=== PATIENT | female | born 1950 | race Caucasian/White ===

== ENCOUNTER → 2019-05-21 13:23 | Outpatient (BNVA) | payer MEDICARE, MEDICAID, SELFPAY | PROVIDERS: PCP Nurse Practitioner Family; Referring Provider Nurse Practitioner Family; Visit Provider Specialist | DX: R26.81 Unsteadiness on feet (principal); Z86.73 Personal history of transient ischemic attack (TIA), and cerebral infarction without residual deficits; R00.2 Palpitations; G47.10 Hypersomnia, unspecified; R29.90 Unspecified symptoms and signs involving the nervous system; I10 Essential (primary) hypertension | CPT/HCPCS: 99205 ==

== ENCOUNTER 2019-07-03 15:50 | Outpatient (CLI) | payer MEDICARE, MEDICAID, SELFPAY ==
--- NOTE | 2019-07-03 16:30 | USCV_ITS ---
Cass Jauregui Age: 68 Gender: F : 1950 Exam Date: 07/03/2019 16:02 Ordering Phys: Abi Park MD Technologist: Diane Can Exam Location: [facility] [place] Indication: cva Risk Factors: Unknown Previous Vascular Surgery: None Right Brachial BP: / Left Brachial BP: / Right Left Velocity (cm/s) Spectral Plaque Velocity (cm/s) Spectral Plaque Syst/Diast Broadening Syst/Diast Broadening 74.60/ 13.70 Prox CCA 70.20 / 19.40 61.80/ 12.90 Mid CCA 79.20 / 15.30 45.20/ 11.30 Distal CCA 72.90 / 17.40 59.70/ 19.40 Hetro Prox ICA 54.70 / 11.70 Hetro 63.20/ 20.10 Mid ICA 67.40 / 22.30 77.80/ 25.70 Distal ICA 79.40 / 23.00 74.00 ECA 61.60 1.04 ICA/CCA 1.00 Vertebral Antegrade 50.70/ 16.70 cm/s 40.00/ 15.40 cm/s Tri Subclavian Tri 66.45 111.4 0 FINDINGS Comparison: none available. No significant elevation of systolic or diastolic velocities. Waveforms are normal. Mild atherosclerosis at the bifurcations. CONCLUSIONS Bilateral ICA stenosis less than 50%. Dr. Malou Joyner DO (Electronically Signed) Final Date: 04 July 2019 08:50 S
== END 2019-07-03 15:51 | disposition home or self-care (01) ==
LOC: US 15:52
PROVIDERS: Family Provider Nurse Practitioner Family; Visit Provider Specialist
DX: I63.9 Cerebral infarction, unspecified (principal); I65.23 Occlusion and stenosis of bilateral carotid arteries
CPT/HCPCS: 93880

== ENCOUNTER → 2019-08-12 14:52 | Outpatient (BNVA) | payer MEDICARE, MEDICAID, SELFPAY | PROVIDERS: Family Provider Nurse Practitioner Family; PCP Nurse Practitioner Family; Visit Provider Specialist | DX: E11.40 Type 2 diabetes mellitus with diabetic neuropathy, unspecified (principal); R60.0 Localized edema; R29.90 Unspecified symptoms and signs involving the nervous system; Z86.73 Personal history of transient ischemic attack (TIA), and cerebral infarction without residual deficits | CPT/HCPCS: 99215 ==

== ENCOUNTER 2020-03-25 08:21 | Outpatient (CLI) | payer MEDICARE, MEDICAID, SELFPAY | END 2020-03-25 08:22 | disposition home or self-care (01) | LOC: WOUND 08:24 | PROVIDERS: Family Provider Nurse Practitioner Family; PCP Nurse Practitioner Family; Visit Provider Nurse Practitioner Family | DX: L03.116 Cellulitis of left lower limb (principal) | CPT/HCPCS: G0463 ==

== ENCOUNTER 2020-04-05 12:10 | Outpatient (CLI) | payer MEDICARE, MEDICAID, SELFPAY ==
--- NOTE | 2020-04-05 12:22 | USCV_ITS ---
Cass Jauregui Age: 69 Gender: F : 1950 Exam Date: 04/05/2020 12:51 Ordering Phys: Violet Guillermo Technologist: Lashaun Nicolas Exam Location: [facility] – [place] Indication: HISTORY: Lower extremity pain. Ulcers. PROCEDURES: Bilateral duplex Venous Insufficiency study of the Deep and Superficial systems was carried out according to normal protocol with the patient in supine positon for deep system and dependent position for the superficial system. FINDINGS: There is no evidence of bilateral deep vein thrombosis. No evidence of superficial thrombosis in the bilateral saphenous system. No evidence of reflux was noted in the bilateral deep venous system. No venous reflux noted in the bilateral greater saphenous vein. CONCLUSIONS No evidence of DVT in the above-mentioned identifiable veins. No significant venous reflux either in the superficial or deep veins bilaterally, based on the above findings Near normal caliber superficial veins bilaterally. Dr Eron Wade MD [facility] (Electronically Signed) Final Date: 06 April 2020 09:43 S
[2020-04-05 14:01] LABS: Basophils # 0.1 10^3/uL (0.0-0.1); Basophils % 0.8 %; Eosinophils # 0.5 10^3/uL (0.0-0.8); Eosinophils % 6.4 %; Hematocrit 45.6 % (37.0-47.0); Hemoglobin 13.1 g/dL (11.5-15.3); Lymphocytes # 1.9 10^3/uL (0.8-4.8); Lymphocytes % 25.3 %; Mean Corpuscular HGB Conc 28.7 g/dL (30.0-36.0); Mean Corpuscular Hemoglobin 29.6 pg (28.0-34.0); Mean Corpuscular Volume 102.9 fL (81-99); Mean Platelet Volume 10.2 fL (7.4-10.4); Monocytes # 0.6 10^3/uL (0.2-0.9); Monocytes % 7.3 %; Neutrophils # 4.48 10^3/uL (1.8-7.7); Neutrophils % 59.8 %; Nucleated Red Blood Cells % 0 %; Platelet Count 192 10^3/cmm (130-400); Red Blood Count 4.43 10^6/uL (4.1-5.3); Red Cell Distribution Width 13.8 % (12.1-15.1); White Blood Count 7.5 10^3/uL (4.0-10.0)
== END 2020-04-05 12:11 | disposition home or self-care (01) ==
LOC: US 12:10
PROVIDERS: PCP Nurse Practitioner Family; Visit Provider Nurse Practitioner Family
DX: L98.499 Non-pressure chronic ulcer of skin of other sites with unspecified severity (principal); M79.605 Pain in left leg; M79.604 Pain in right leg
CPT/HCPCS: 36415; 85025; 87040; 93970

== ENCOUNTER 2020-04-06 07:11 | Outpatient (CLI) | payer MEDICARE, MEDICAID, SELFPAY ==
--- NOTE | 2020-04-06 07:18 | USCV_ITS ---
Cass Jauregui Age: 69 Gender: F : 1950 Exam Date: 04/06/2020 07:05 Ordering Phys: Violet Guillermo Technologist: Exam Location: [facility] [place] Indication: ATHEROSCLEROSIS RIGHT LEFT Brachial 179.00 mmHg Brachial 160.00 mmHg Pressure (mmHg) Waveform Pressure (mmHg) Waveform 175.00 Above Knee 157.00 164.00 Below Knee 167.00 167.00 HAND GLUER AND SLICER 160.00 161.00 DPA 126.00 0.93 Ankle/Brachial Index 0.89 93.00 Pre-Exercise Toe Pressure 127.00 0.71 Pre-Exercise Toe/Brachial Index 0.52 FINDINGS Slightly diminished resting SHEREE bilaterally, 0.93 on the right side and 0.89 on the left side Normal resting TBI on the right side and diminished resting TBI on the left side-0.71 and 0.52 respectively CONCLUSIONS Features suggestive of mild to moderate peripheral artery disease on the left side and mild peripheral artery disease on the right side Dr Eron Wade MD [facility] (Electronically Signed) Final Date: 07 April 2020 07:38 S
== END 2020-04-06 07:12 | disposition home or self-care (01) ==
LOC: US 07:11
PROVIDERS: PCP Nurse Practitioner Family; Visit Provider Nurse Practitioner Family
DX: M79.604 Pain in right leg (principal); M79.605 Pain in left leg; L53.9 Erythematous condition, unspecified; L97.929 Non-pressure chronic ulcer of unspecified part of left lower leg with unspecified severity; L97.919 Non-pressure chronic ulcer of unspecified part of right lower leg with unspecified severity
CPT/HCPCS: 93923

== ENCOUNTER 2020-04-08 08:23 | Outpatient (CLI) | payer MEDICARE, MEDICAID, SELFPAY | END 2020-04-08 08:24 | disposition home or self-care (01) | LOC: WOUND 08:24 | PROVIDERS: PCP Nurse Practitioner Family; Visit Provider Nurse Practitioner Family | DX: E11.622 Type 2 diabetes mellitus with other skin ulcer (principal); L97.829 Non-pressure chronic ulcer of other part of left lower leg with unspecified severity | CPT/HCPCS: G0463 ==

== ENCOUNTER 2020-04-15 09:02 | Outpatient (CLI) | payer MEDICARE, MEDICAID, SELFPAY | END 2020-04-15 09:03 | disposition home or self-care (01) | LOC: WOUND 09:03 | PROVIDERS: PCP Nurse Practitioner Family; Visit Provider Nurse Practitioner Family | DX: L03.116 Cellulitis of left lower limb (principal) | CPT/HCPCS: 29581; 99214 ==

== ENCOUNTER 2020-04-19 13:40 | Outpatient (CLI) | payer MEDICARE, MEDICAID, SELFPAY | END 2020-04-19 13:41 | disposition home or self-care (01) | LOC: WOUND 13:44 | PROVIDERS: PCP Nurse Practitioner Family; Visit Provider Thoracic Surgery (Cardiothoracic Vascular Surgery) | DX: Z09 Encounter for follow-up examination after completed treatment for conditions other than malignant neoplasm (principal) | CPT/HCPCS: 99212; A6545 ==

== ENCOUNTER 2020-04-26 10:38 | Outpatient (CLI) | payer MEDICARE, MEDICAID, SELFPAY | END 2020-04-26 10:39 | disposition home or self-care (01) | LOC: WOUND 10:39 | PROVIDERS: PCP Nurse Practitioner Family; Visit Provider Nurse Practitioner Family | DX: L03.116 Cellulitis of left lower limb (principal) | CPT/HCPCS: 99212 ==